=== PATIENT | female | born 1970 | race Caucasian/White ===

== ENCOUNTER 2017-03-26 12:26 | Emergency (ER) | payer MEDICAID ==
[~2017-03-26] VITALS: Ht 157.5 cm; Wt 68.0 kg
[~2017-03-26 12:26] MED LIST: EXCEDRIN MIGRAI1 TA1 PO; MOTRIN600 MG PO; VICODIN 5/1 TAB 5/50 PO
== END 2017-03-26 14:21 | disposition home or self-care (01) ==
LOC: SED 12:26
DX: L02.01 Cutaneous abscess of face (principal); L02.11 Cutaneous abscess of neck; L03.211 Cellulitis of face; L03.221 Cellulitis of neck; Z98.890 Other specified postprocedural states
CPT/HCPCS: 10060; 99283